=== PATIENT | male | born 1985 | race Caucasian/White ===

== ENCOUNTER 2016-06-03 20:45 | Emergency (ER) | payer OTHER | END 2016-06-03 23:32 | disposition home or self-care (01) | LOC: ER 20:45 | DX: N50.812 Left testicular pain (principal); R30.0 Dysuria; R31.0 Gross hematuria; N30.01 Acute cystitis with hematuria; Z79.899 Other long term (current) drug therapy; F17.210 Nicotine dependence, cigarettes, uncomplicated | CPT/HCPCS: 76870; 81001; 87088 ==